=== PATIENT | female | born 1990 | race Caucasian/White ===

== ENCOUNTER 2018-01-15 10:06 | Emergency (ER) | payer OTHER ==
--- NOTE | 2018-01-15 13:56 | RAD ---
RIGHT ANKLE 3 VIEWS: DATE: 01/15/18. FINDINGS: Mild lateral swelling is present. No acute fracture was seen. A small calcaneal spur was noted. So me bony irregularity on the dorsum of the navicular at the talonavicular joint appears to be due to o ld trauma. IMPRESSION: Mild lateral swelling. POS: HOME
== END 2018-01-15 11:03 | disposition home or self-care (01) ==
LOC: BURERS 10:06
DX: S93.421A Sprain of deltoid ligament of right ankle, initial encounter (principal); X50.1XXA Overexertion from prolonged static or awkward postures, initial encounter
CPT/HCPCS: 29515